=== PATIENT | female | born 1980 | race Caucasian/White ===

== ENCOUNTER → 2018-10-09 | Day surgery (SDC) | payer MEDICARE, OTHER ==
[~2018-10-09] MED LIST: ALBUTEROL SULFATE 2.5 MG/3 ML NEBU. NEB PRN; ATROPINE 0.5 MG/5 ML DISP.SYRIN. IV PRN; IV RINGERS SOLUTION,LACTATED 1,000 ML IV SCH; LIDOCAINE 2% PF Vial for OR 5 ML VIAL. ONE; MIDAZOLAM HCL PF 2 MG/2 ML VIAL. ONE; NALOXONE 0.4 MG/ML VIAL. IV PRN; ONDANSETRON PF 4 MG/2 ML VIAL. IV PRN; PROCHLORPERAZINE 10 MG/2 ML VIAL. IV PRN; PROPOFOL 20 ML IV ONE; PROPOFOL 40 ML IV ONE
[2018-10-09 08:27] LABS: U PREG PATIENT NEGATIVE (NEG)
--- NOTE | 2018-10-09 09:39 | PDOC ---
BRIEF OPERATIVE NOTE Date: Oct 09, 2018 Pre-Op Diagnosis failed root canal # 8, non restorable Post-Op Diagnosis failed root canal # 8, non restorable Procedure Performed surgical extraction # 8 Placement of bone graft Surgeon Lucia Carbone Anesthesiologist Sondra Anesthesia Type: General, MAC Blood Loss <10ml IV Fluid 1000 NS Urine Output no ferrera Specimens Obtained tooth disposed of in OR Findings Poor remaining dentoalveolar bone Complete destruction of facial bone see dictation Complications none GARIMA LÓPEZ DMD Oct 09, 2018 09:39
--- NOTE | 2018-10-09 09:47 | DISCH ---
DISCHARGE ORDERS CONDITION AT DISCHARGE: Stable Code Status: Full SNF STAY <30 DAYS: No POST DISCHARGE ORDERS: ACTIVITY ORDERS: Activity as tolerated, Avoid exertion DIET AFTER DISCHARGE: Regular (Soft mechanical diet, no-chew for 7 days, then advance as tolerated. NO Straws) WOUND/INCISION CARE: Ice to area for comfort (ok to leave splint in. Remove approx 1-2 x day for cleaning) CHECKS AFTER DISCHARGE: COMMENTS: Bite on Gauze for 60 minutes PRN bleeding FOLLOW-UP: PHYSICIAN FOLLOW-UP: Follow up in 1 month [phone] Please call for appointment. Yarely-GARIMA Patel DMD Oct 09, 2018 09:47
[2018-10-09 10:37] VITALS: BP 130/85
--- NOTE | 2018-10-17 15:53 | OP ---
DATE OF SURGERY: 10/09/2018 OPERATING SERVICE: central office equipment installer. ATTENDING PHYSICIAN: Niraj López DMD BRIEF HISTORY: The patient is a developmentally delayed 38-year-old female who has a failed root canal with recurrent abscess #8, is slated for extraction and grafting. POSTOPERATIVE DIAGNOSIS: Failed root canal with recurrent abscess #8, is slated for extraction and grafting After a brief history, the patient was referred to our clinic for evaluation. Tooth was found to be having purulence expressed from the facial and having intermittent episodes of pain. Previous root canal and possible apical apicoectomy. Plan was to attempt bone grafting and implant placement for the future and an Essix retainer had been created. History and physical was performed. Mother requested due to the patient's dental anxiety that this could be performed in the surgery center and given the patient's limited mental development this appeared to be a good idea for patient management. History and physical was performed in our clinic and permit was obtained for surgery. DRAINS PLACED: None. SPECIMEN SENT: None, tooth was disposed off in OR. ESTIMATED BLOOD LOSS: Less than 10 mL. COMPLICATIONS: None noted at the time of surgery. OPERATIVE DESCRIPTION: After the history and physical was updated in the preoperative holding area, the patient was transported by the Anesthesia Service to the operating suite, placed in the supine position. General anesthesia and MAC anesthetic was induced with intravenous medications and the patient was kept in a conscious state throughout the procedure. Local maneuvers were employed for airway assistance, chin thrust and tongue pull as needed. Bite block was utilized and gauze packs and pharyngeal curtains were placed to manage secretions and protect her airway throughout the procedure. Surgery began with 15 blade, a full thickness mucoperiosteal flaps were reflected around the tooth. A 2 x 2 mm fenestration was observed at the apex of #8 where purulence was actively expressed from the root tip. The tooth periotome and a mallet were employed to suction the tooth from the bone. Forceps were employed to luxate, elevate and extract this tooth without complication. The site was curetted with copious normal sterile saline irrigation. Doxycycline was placed in the extraction site and allowed to remain for several minutes and lavaged and suctioned. A bone graft with doxycycline mixed in it was placed. It was a Vane Puros bone graft placed in this site. A membrane was placed in the buccal and a collaplug was placed on the occlusal surface. This was oversewn with 4-0 PTFE sutures in a 2 [id number] fashion with a single suture at the apex to close the apices. The buccal membrane was used to cover up the fenestration. The site was found to be hemostatic. An Essix that had been prepared preoperatively was checked and appeared to have no interaction with the tissue or the extraction site and was left in place to assist with aesthetics in. NIRAJ LÓPEZ DMD DR: Gertrude JOB#: [id number] / [id number] MARIANA
== END | disposition home or self-care (01) ==
LOC: SURG 07:39
PROVIDERS: ATTEND Dentist Oral and Maxillofacial Surgery
DX: K04.7 Periapical abscess without sinus (principal); R62.50 Unspecified lack of expected normal physiological development in childhood; Z79.899 Other long term (current) drug therapy
CPT/HCPCS: 41899; 81025; J0696; J2250; J2704; J7120; J2001